=== PATIENT | male | born 1965 | race Caucasian/White ===

== ENCOUNTER 2017-03-17 20:58 | Emergency (ER) | payer BC ==
[2017-03-17 21:03] VITALS: BP 153/83; PULSE 98; RESP 20; TEMP 98.3
--- NOTE | 2017-03-17 21:29 | ED ---
Skin/Abscess/FB HPI - General Chief complaint: Skin/Abscess/Foreign Body Stated complaint: shingles Time Seen by Provider: 03/17/17 21:15 Source: patient Mode of arrival: ambulatory Limitations: no limitations - History of Present Illness Initial comments: 52-year-old male patient presents to emergency department today for evaluation of pain and rash to his left lower back area. Patient states that he started with a burning pain approximately 4 days ago. Patient states it made it difficult to sleep and it was painful to have a any clothing touching the area. He states today he did develop a rash over his left lower back. He states that the pain radiates from his left lower back around to his groin and the inside of his leg. He denies any rashes these areas. States the appear to be blisters. He denies any history of similar rash or lesions. Denies any known contacts with similar symptoms. He reports he did have chickenpox as a child. He denies any increased pain with bending or twisting of his back. Denies any loss of bowel or bladder control. Denies any saddle anesthesia. Denies any weakness or difficulty in relating. Patient denies any fever, chills, shortness breath, chest pain, abdominal pain, nausea, vomiting, diarrhea, constipation, numbness, tingling, dizziness, weakness, hematuria, dysuria, urinary urgency, urinary frequency, headache, visual changes, or any other complaints. - Related Data Previous Rx's Medication Instructions Recorded Acetaminophen-Codeine 300-30mg 1 tab PO Q6H PRN #15 tablet 03/17/17 [Tylenol #3] Ibuprofen [Motrin] 600 mg PO Q8HR PRN #30 tab 03/17/17 valACYclovir HCL [Valacyclovir] 1,000 mg PO Q8H #21 tab 03/17/17 Allergies Allergy/AdvReac Type Severity Reaction Status Date / Time No Known Allergies Allergy Verified 03/17/17 21:02 Review of Systems ROS Statement: Those systems with pertinent positive or pertinent negative responses have been documented in the HPI. ROS Other: All systems not noted in ROS Statement are negative. Past Medical History Past Medical History: Diabetes Mellitus History of Any Multi-Drug Resistant Organisms: None Reported Past Surgical History: No Surgical Hx Reported Past Psychological History: No Psychological Hx Reported Smoking Status: Never smoker Past Alcohol Use History: None Reported Past Drug Use History: None Reported General Exam Limitations: no limitations General appearance: alert, in no apparent distress, other (This is a well- developed, well-nourished adult male patient in no acute distress. Vital signs upon presentation are temperature 98.3F, pulse 98, respirations 20, blood pressure 153/83, pulse ox 99% on room air.) Eye exam: Present: normal appearance, PERRL, EOMI. Absent: scleral icterus, conjunctival injection, periorbital swelling Respiratory exam: Present: normal lung sounds bilaterally. Absent: respiratory distress, wheezes, rales, rhonchi, stridor Cardiovascular Exam: Present: regular rate, normal rhythm, normal heart sounds. Absent: systolic murmur, diastolic murmur, rubs, gallop, clicks GI/Abdominal exam: Present: soft, normal bowel sounds. Absent: distended, tenderness, guarding, rebound, rigid Extremities exam: Present: normal inspection, full ROM, normal capillary refill , other (No inguinal lymphadenopathy, no leg or rash, swelling, or erythema noted.). Absent: tenderness, pedal edema, joint swelling, calf tenderness Back exam: Present: tenderness (Over the left lower back.), rash noted (To the left lower back, a grouping of vesicles, no surrounding erythema, no drainage, no crusting.) Neurological exam: Present: alert, oriented X3, CN II-XII intact Psychiatric exam: Present: normal affect, normal mood Skin exam: Present: warm, dry, intact, normal color, rash (As noted under back exam.) Course Vital Signs 03/17/17 21:00 Temperature 98.3 F Pulse Rate 98 Respiratory 20 Rate Blood Pressure 153/83 O2 Sat by Pulse 99 Oximetry Medical Decision Making - Medical Decision Making 52-year-old male patient presents to emergency department today for evaluation of left lower back pain with radiation around his hip and into his groin and inner thigh. Physical examination did reveal a vesicular rash to the left lower back, and a pain pattern following the L1 to L2 dermatome. Physical exam is otherwise unremarkable. Patient's symptoms and findings are consistent with varicella-zoster infection. He will be placed on valacyclovir and given medications for pain control. He is instructed to follow-up with his primary care physician for recheck in 1-2 days. He is instructed to present to the nearest emergency department for any new, worsening, or concerning symptoms. He verbalizes understanding and agrees this plan. Disposition Clinical Impression: Shingles Disposition: HOME SELF-CARE Condition: Good Instructions: Shingles (ED) Additional Instructions: Take medications as directed. Follow-up with your primary care physician for recheck in 1-2 days. Return here immediately for any new, worsening, or concerning symptoms. Prescriptions: Acetaminophen-Codeine 300-30mg [Tylenol #3] 1 tab PO Q6H PRN #15 tablet PRN Reason: Pain Ibuprofen [Motrin] 600 mg PO Q8HR PRN #30 tab PRN Reason: Pain valACYclovir HCL [Valacyclovir] 1,000 mg PO Q8H #21 tab Referrals: Nonstaff,Physician [Primary Care Provider] - 1-2 days Time of Disposition: 21:29
== END 2017-03-17 22:07 | disposition home or self-care (01) ==
LOC: EC 20:58
DX: B02.9 Zoster without complications (principal); M54.5 Low back pain
CPT/HCPCS: 99282